=== PATIENT | male | born 1955 | race Asian ===

== ENCOUNTER 2016-11-26 01:06 | Emergency (ER) | payer MEDICAID, OTHER ==
[~2016-11-26] VITALS: Ht 170.2 cm; Wt 91.5 kg
[2016-11-26 01:11] VITALS: Ht 170.2 cm; Wt 91.5 kg
[2016-11-26] MEDS ORDERED: ONDANSETRON 4 MG INJ IV STA (01:17)
[2016-11-26] MEDS ORDERED: HYDROmorphONE 1 MG/ML SYG IV STA (01:17)
[2016-11-26 01:49] LABS: BASOPHILS % 0.2 % (0.0-2.0); EOSINOPHILS % 0.2 % (0.0-7.0); HEMATOCRIT 46.8 % (42.0-52.0); HEMOGLOBIN 15.9 g/dl (14.0-18.0); LYMPHOCYTES # 1.3 10^3/ul (0.8-2.9); LYMPHOCYTES % 13.7 % (15.0-51.0); MEAN CORPUSCULAR HGB CONC 34.1 g/dl (32.0-37.0); MEAN CORPUSCULAR VOLUME 94.1 fl (82.0-101.0); MEAN PLATELET VOLUME 8.2 fl (7.4-10.4); MONOCYTE # 0.5 10^3/ul (0.3-0.9); MONOCYTES % 4.8 % (0.0-11.0); NEUTROPHIL # 7.6 10^3/ul (1.6-7.5); NEUTROPHILS % 81.1 % (39.0-77.0); PLATELET COUNT 199 10^3/UL (140-440); RED BLOOD COUNT 4.98 10^6/ul (4.70-6.10); RED CELL DISTRIBUTION WIDTH 12.6 % (11.5-14.5); UNCORRECTED WBC 9.4 10^3/ul (4.8-10.8); WHITE BLOOD COUNT 9.4 10^3/ul (4.8-10.8)
[2016-11-26 01:51] LABS: CONDITION 1
[2016-11-26 02:00] LABS: POTASSIUM 4.3 mmol/L (3.5-5.1)
[2016-11-26 02:03] LABS: CALCIUM 9.5 mg/dl (8.4-10.2); CREATININE 0.97 mg/dl (0.61-1.24)
--- NOTE | 2016-11-26 02:03 | RADRPT ---
PROCEDURE: CT Abdomen and pelvis without contrast. CLINICAL INDICATION: Abdominal pain. TECHNIQUE: CT scan of the abdomen and pelvis was performed on the [employer] LightSpeed 6 4 slice VCT scanner. Contiguous axial images using 2.5 mm slice thickness were obtained from the lainey ng bases to the ischial tuberosities without intravenous contrast. Coronal and sagittal reformatted images were also obtained. Images were reviewed on the PACS workstation. Exam CTD/vol = 13.31 mGy. Total exam DLP = 814.15 mGy-cm. COMPARISON: None. FINDINGS: Evaluation of the lung bases demonstrates mild bibasilar atelectasis. Abdomen: The liver is normal in size. There is no focal mass or dilatation of the biliary tree. T he gallbladder is not distended. Multiple gallstones are identified. The spleen, pancreas and bilate ral adrenal glands are within normal limits. Bilateral kidneys are normal in size with small right renal cysts. There is a 1 mm calculus within the lower pole of the right kidney. There is no radio paque ureteral calculus identified. There is no hydronephrosis or hydroureter. There is no retrope ritoneal adenopathy. The abdominal aorta is of normal caliber with scattered atherosclerotic calcif ications. There is no abnormal bowel wall thickening or distension. There is no bowel obstruction or free air . A normal appendix is identified. There is no diverticulosis or diverticulitis. There is no asci abelardo. Pelvis: The bladder is unremarkable. The prostate and seminal vesicles are within normal limits. There is no significant pelvic adenopathy or free fluid. Evaluation of the osseous structures demonstrates no suspicious lytic or blastic lesion. IMPRESSION: No acute abnormality identified within the abdomen and pelvis. Cholelithiasis. Nonobstructing right renal calculus. Vascular calcifications reflective of atherosclerosis. Mild bibasilar atelectasis. .Angelo Shook MD, Date Time Electronically viewed and signed by .Angelo Shook MD, MD on 11/26/2016 02:03 .T/
[2016-11-26] MEDS ORDERED: hydrALAzine 20 MG INJ IV ONE ×2 (02:30→03:30)
[2016-11-26 02:37] LABS: ALBUMIN 4.6 g/dl (3.3-4.9)
[2016-11-26 02:39] LABS: BILIRUBIN,INDIRECT 0.5 mg/dl (0-1.1); BILIRUBIN,TOTAL 0.5 mg/dl (0.2-1.3); TOTAL PROTEIN 8.4 g/dl (6.1-8.1)
[2016-11-26] MEDS ORDERED: NICARDipine HCL 30 MG CAPSULE PO ONE (03:30)
[2016-11-26 03:58] LABS: ADD UMIC YES; URINE BILIRUBIN (Dip) NEGATIVE (NEGATIVE); URINE BLOOD (Dip) TRACE (NEGATIVE); URINE COLOR LT. YELLOW (YELLOW); URINE GLUCOSE (Dip) NEGATIVE (NEGATIVE); URINE KETONES (Dip) NEGATIVE (NEGATIVE); URINE LEUKOCYTE ESTERASE (Dip) NEGATIVE (NEGATIVE); URINE NITRITE (Dip) NEGATIVE (NEGATIVE); URINE TOTAL PROTEIN (Dip) 1+ (NEGATIVE); URINE UROBILINOGEN (Dip) 0.2 E.U./dL (0.1-1.0)
[2016-11-26] MEDS ORDERED: HYDR-902 PO (04:11)
[2016-11-26] MEDS ORDERED: AMLO-218 PO (04:11)
[2016-11-26] MEDS ORDERED: DICY20TA59 PO (04:11)
--- NOTE | 2016-11-26 04:15 | ERD ---
ER Documentation Chief Complaint Date/Time DATE: 11/26/16 TIME: 04:12 Chief Complaint RIGHT FLANK PAIN SINCE LAST NIGTH. HX OF KIDNEY STONE HPI This is a 61-year-old male with a history of renal stones complains of a sudden onset of right back and right upper quadrant pain 1 hour prior to arrival with nausea vomiting 1 is since resolved. No diarrhea no chest pain or shortness of breath no fever. The patient says he has kidney stones in the past and this feels somewhat different. No radiation of pain pain onset was severe currently as mild to moderate. Patient denies history of hypertension but has elevated blood pressure here ROS All systems reviewed and are negative except as per history of present illness. Medications Home Meds Active Scripts Hydrocodone/Acetaminophen ([place] 10-325 Tablet) 1 Each Tablet, 1 TAB PO Q6H Y for PAIN, #20 TAB Prov:LUIS ALBERTO MANDUJANOSTOLOS A. DO 11/26/16 Dicyclomine Hcl* (Bentyl*) 20 Mg Tablet, 20 MG PO QID, #30 TAB Prov:LUIS ALBERTO MANDUJANOSTJUDITHS A. DO 11/26/16 Amlodipine Besylate* (Norvasc*) 10 Mg Tablet, 10 MG PO DAILY, #30 TAB Prov:LELIOOSLUIS ALBERTOSTOLOS A. DO 11/26/16 Allergies Allergies: Coded Allergies: No Known Drug Allergies (Verified Allergy, Unknown, 11/26/16) PMhx/Soc History of Surgery: Yes (inguinal hernia repair) Hx Miscellaneous Medical Probl: Yes (kidney stones) Hx Alcohol Use: Yes (special occasions) Hx Substance Use: No Hx Tobacco Use: Yes (quit- now e-cigs) Smoking Status: Former smoker FmHx Family History: No coronary disease Physical Exam Vitals Vital Signs Date Time Temp Pulse Resp B/P Pulse Ox O2 Delivery O2 Flow Rate FiO2 11/26/16 03:22 68 17 206/111 100 Room Air 11/26/16 01:11 97.0 59 20 171/90 100 Physical Exam Const: Well-developed, well-nourished Head: Atraumatic, normocephalic Eyes: Normal Conjunctiva, PERRLA, EOMI, normal sclera, no nystagmus ENT: Normal External Ears, Nose and Mouth, moist mucus membranes. Neck: Full range of motion. No meningismus, no lymphadenopathy. Resp: Clear to auscultation bilaterally, no wheezing, rhonchi, rales Cardio: Regular rate and rhythm, no murmurs, S1 S2 present Abd: Soft, right upper quadrant pain mild tenderness, non distended. Normal bowel sounds, no guarding or rebound, no pulsitile abdominal masses or bruits Skin: No petechiae or rashes, no ecchymosis , no maculopapular rash Back: No midline or flank tenderness Ext: No cyanosis, or edema, FROM x 4, normal inspection, neurovascularly intact x 4 Neur: Awake and alert, STR 5/5 x 4, sensation intact x 4, no focal findings, cerebellum intact Psych: Normal Mood and Affect Result Diagram: 11/26/1612411/26/165 Results 24 hrs Laboratory Tests Test 11/26/16 01:25 Alanine Aminotransferase (ALT/SGPT) 36IU/L Albumin 4.6g/dl Alkaline Phosphatase 101IU/L Anion Gap 18 Aspartate Amino Transf (AST/SGOT) 27IU/L Basophils # 0.010^3/ul Basophils % 0.2% Blood Urea Nitrogen 14mg/dl Calcium Level 9.5mg/dl Carbon Dioxide Level 26mmol/L Chloride Level 103mmol/L Creatinine 0.97mg/dl Direct Bilirubin 0.00mg/dl Eosinophils # 0.010^3/ul Eosinophils % 0.2% Glucose Level 133mg/dl Hematocrit 46.8% Hemoglobin 15.9g/dl Indirect Bilirubin 0.5mg/dl Lymphocytes # 1.310^3/ul Lymphocytes % 13.7% Mean Corpuscular Hemoglobin 32.0pg Mean Corpuscular Hemoglobin Concent 34.1g/dl Mean Corpuscular Volume 94.1fl Mean Platelet Volume 8.2fl Monocytes # 0.510^3/ul Monocytes % 4.8% Neutrophils # 7.610^3/ul Neutrophils % 81.1% Nucleated Red Blood Cells # 0.010^3/ul Nucleated Red Blood Cells % 0.0/100WBC Platelet Count 63542^3/UL Potassium Level 4.3mmol/L Red Blood Count 4.9810^6/ul Red Cell Distribution Width 12.6% Sodium Level 143mmol/L Total Bilirubin 0.5mg/dl Total Protein 8.4g/dl White Blood Count 9.410^3/ul Current Medications Medications (Trade) Dose Ordered Sig/Rodney Route PRN Reason Start Time Stop Time Status Last Admin Dose Admin Hydromorphone HCl (Dilaudid) 1 mg ONCE STAT IV 11/26/16 01:17 11/26/16 01:19 DC 11/26/16 01:30 Ondansetron HCl (Zofran Inj) 4 mg ONCE STAT IV 11/26/16 01:17 11/26/16 01:19 DC 11/26/16 01:30 Hydralazine HCl (Apresoline) 10 mg ONCE ONCE IV 11/26/16 02:30 11/26/16 02:31 DC 11/26/16 02:13 Nicardipine HCl (Cardene) 30 mg ONCE ONCE PO 11/26/16 03:30 11/26/16 03:31 DC 11/26/16 04:05 Hydralazine HCl (Apresoline) 10 mg ONCE ONCE IV 11/26/16 03:30 11/26/16 03:31 DC 11/26/16 04:06 Procedures/MDM PROCEDURE: CT Abdomen and pelvis without contrast. CLINICAL INDICATION: Abdominal pain. TECHNIQUE: CT scan of the abdomen and pelvis was performed on the [employer] LightSpeed 64 slice VCT scanner. Contiguous axial images using 2.5 mm slice thickness were obtained from the lung bases to the ischial tuberosities without intravenous contrast. Coronal and sagittal reformatted images were also obtained. Images were reviewed on the PACS workstation. Exam CTD/vol = 13.31 mGy. Total exam DLP = 814.15 mGy-cm. COMPARISON: None. FINDINGS: Evaluation of the lung bases demonstrates mild bibasilar atelectasis. Abdomen: The liver is normal in size. There is no focal mass or dilatation of the biliary tree. The gallbladder is not distended. Multiple gallstones are identified. The spleen, pancreas and bilateral adrenal glands are within normal limits. Bilateral kidneys are normal in size with small right renal cysts. There is a 1 mm calculus within the lower pole of the right kidney. There is no radiopaque ureteral calculus identified. There is no hydronephrosis or hydroureter. There is no retroperitoneal adenopathy. The abdominal aorta is of normal caliber with scattered atherosclerotic calcifications. There is no abnormal bowel wall thickening or distension. There is no bowel obstruction or free air. A normal appendix is identified. There is no diverticulosis or diverticulitis. There is no ascites. Pelvis: The bladder is unremarkable. The prostate and seminal vesicles are within normal limits. There is no significant pelvic adenopathy or free fluid. Evaluation of the osseous structures demonstrates no suspicious lytic or blastic lesion. IMPRESSION: No acute abnormality identified within the abdomen and pelvis. Cholelithiasis. Nonobstructing right renal calculus. Vascular calcifications reflective of atherosclerosis. Mild bibasilar atelectasis. .Angelo Shook MD, MD Date Time Electronically viewed and signed by .Angelo Shook MD, MD on 11/26/2016 02:03 .T/ CC: CHENG MANDUJANO DO Patient received intravenous hydralazine and Cardene p.o. to lower his blood pressure. The patient's pain is due to gallstones. Does not have any elevated liver function tests her white blood count. We will discharge him with Norvasc and Francy in a follow-up with general surgery Departure Diagnosis: Primary Impression: Gallstones Additional Impression: Hypertension Hypertension type: essential hypertension Qualified Code: I10 - Essential hypertension Condition: Stable Patient Instructions: High Blood Pressure (Hypertension) Referrals: ISA REYES APOSTOLOS A. DO Nov 26, 2016 04:15
[2016-11-26 04:52] LABS: BACTERIA,URINE MODERATE; SQUAMOUS EPITHELIAL CELL,UR FEW; URINE RBCS 0-2 /HPF (0)
[2016-11-26 04:57] VITALS: BP 136/91; PULSE 76; RESP 17; TEMP 98.2
== END 2016-11-26 04:59 | disposition home or self-care (01) ==
LOC: E/R 01:06
DX: K80.20 Calculus of gallbladder without cholecystitis without obstruction (principal); I10 Essential (primary) hypertension; R11.2 Nausea with vomiting, unspecified; Z87.891 Personal history of nicotine dependence
CPT/HCPCS: 36415; 74176; 80048; 80076; 81001; 81003; 85025; 96374; 96375; 96376; J0360; J1170; J2405; Z7502; Z7610

== ENCOUNTER 2017-06-08 13:40 | Observation (INO) | payer OTHER ==
[~2017-06-08] VITALS: Ht 170.2 cm; Wt 85.7 kg
[2017-06-08] VITALS (17 sets, daily range): BP systolic 108–165; BP diastolic 67–100; PULSE 54–69; RESP 12–18; Ht 170.2 cm; Wt 85.7 kg
[~2017-06-08 13:40] MED LIST: AMLO-218 PO; CEFAZOLIN 1 GM INJ ONE; CEFAZOLIN 2 GM/50 ML (PMX) 50 ML IVPB ONE; DICY20TA59 PO; HYDR-902 PO; SOD CHLORIDE 0.9% 1,000 ML IV SCH
[2017-06-08] MEDS ORDERED: ASPI-664 PO (14:15)
[2017-06-08] MEDS ORDERED: AMLO5TAB4 PO (14:15)
[2017-06-08] MEDS ORDERED: ALBUTEROL 0.083% (NEB) 2.5 MG/3 ML AMP HHN ONE (15:00)
[2017-06-08] MEDS ORDERED: METOCLOPRAMIDE 10 MG INJ IV PRN (15:00)
[2017-06-08] MEDS ORDERED: HYDROmorphONE (0.2 MG/ML) 10ML SYG IV PRN (15:00)
[2017-06-08] MEDS ORDERED: CEFAZOLIN 2 GM/50 ML (PMX) 50 ML IVPB ONE (15:00)
[2017-06-08] MEDS ORDERED: FENTAnyl 50 MCG/ML VIAL IV PRN ×2 (15:00)
[2017-06-08] MEDS ORDERED: ONDANSETRON 4 MG INJ IV PRN (15:00)
[2017-06-08] MEDS ORDERED: SOD CHLORIDE 0.9% 1,000 ML IV SCH (15:00)
[2017-06-08] MEDS ORDERED: MEPERIDINE 25 MG INJ IV PRN (15:00)
[2017-06-08] MEDS ORDERED: DIPHENHYDRAMINE 50 MG INJ IV PRN (15:00)
[2017-06-08] MEDS ORDERED: BUPIVACAINE 0.25% (MPF) 30 ML INJ ONE (16:28)
[2017-06-08] MEDS ORDERED: FENTAnyl 50 MCG/ML VIAL ONE (16:52)
[2017-06-08] MEDS ORDERED: LABETALOL HCL 20MG INJ ONE (17:36)
[2017-06-08] MEDS ORDERED: LIDOCAINE 2% (SDV) 5 ML INJ ONE (17:46)
[2017-06-08] MEDS ORDERED: SUCCINYLCHOLINE CHLORIDE 100 MG/5 ML SYG IV ONE (17:46)
[2017-06-08] MEDS ORDERED: ROCURONIUM 50 MG INJ ONE (17:47)
[2017-06-08] MEDS ORDERED: PROPOFOL 20 ML ONE (17:47)
[2017-06-08] MEDS ORDERED: SUGAMMADEX SODIUM 200 MG/2 ML VIAL IV ONE (17:47)
--- NOTE | 2017-06-08 18:14 | OPR ---
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 laparoscopic cholecystectomy 2. 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 He requires surgical excision of his gallbladder and liver wedge biopsy. Risks alternatives benefits in personal discussed patient. Patient expressed understanding consents to the operation. Operative\Procedure Findings Intrahepatic gallbladder and liver discoloration Procedure Description Patient is taken to the OR and prepped and draped in usual sterile fashion surgical timeout was performed IV antibiotics are given. Infraumbilical incision is made transversely with a 15 blade. Dissection cautery was carried onto the fascia. Fascia is divided with curved Pedro scissors. 0 Vicryl U stitch was placed to the fascia. Balloon Reyes trocar was introduced. Pneumoperitoneum is established. Mid epigastric optical 12 mm trocar was placed under direct visualization. Right upper quadrant 5 mm optical trocar in the right upper flank 5 mm optical trocar was placed under direct visualization. Upon initial inspection the contracted gallbladder was completely intrahepatic with adhesions was seen. Dome down approach was elected with careful dissection. The cystic duct was identified and dissected out however the cystic duct was thickened. 2 fires of 35 mm echelon vascular stapler was used to divide the cystic duct. Additional clips were used to reinforce the staple line. There is good hemostasis. The cystic artery was addressed with 3 clips proximal 1 clip distal. The cystic artery was divided. Gallbladder was retrieved using an Endo Catch bag. Wedge liver biopsy was also performed with cautery scissor in segment 5. There is good hemostasis. Additional snow Surgicel was applied to the wide gallbladder bed. Ports removed under direct visualization. 0 Vicryl U stitch was tied down. Skin was closed with running 4-0 Monocryl. Dry dressings were applied. Elan RILEY Jun 08, 2017 18:14
[2017-06-08] MEDS ORDERED: HYDROCODONE/APAP (5/325) TAB PO ONE (18:30)
[2017-06-08] MEDS: HYDROmorphONE (0.2 MG/ML) 10ML SYG IV PRN ×4 (18:51→19:34)
[2017-06-08] MEDS ORDERED: ACETAMINOPHEN (10 MG/ML) IV SYG IV* PRN (20:00)
[2017-06-08] MEDS ORDERED: ACETAMINOPHEN 1000MG/100ML IV 100 ML IVPB PRN ×2 (20:30→21:00)
[2017-06-08] MEDS: morphine 2 MG INJ IV PRN (21:02)
[2017-06-09 00:30] VITALS: BP 114/72; PULSE 62; RESP 18
[2017-06-09] MEDS: morphine 2 MG INJ IV PRN (06:09)
[2017-06-09 07:00] VITALS: BP 171/102; RESP 18
[2017-06-09] MEDS: HYDROCODONE/APAP (5/325) TAB PO PRN ×3 (07:58→17:16)
[2017-06-09 08:38] VITALS: BP 151/82; PULSE 71; RESP 18
--- NOTE | 2017-06-09 11:56 | HP ---
Date/Time of Note Date/Time of Note DATE: 06/09/17 TIME: 11:46 Assessment/Plan VTE Prophylaxis VTE Prophylaxis Intervention: SCD's Lines/Catheters IV Catheter Type (from Nrs): Peripheral IV Assessment/Plan Assessment/Plan -Cholelithiasis - sp laparoscopic cholecystectomy - sp wedge liver biopsy -Per surgical recommendations -Incentive spirometer -N.p.o., on IV fluids -Pain control-Tylenol, [place], morphine -Monitor for signs and symptoms of infection -Status post liver biopsy -Per surgical recommendations SCDs for DVT prophylaxis Protonix for GI prophylaxis Further treatment plan depends on patient's clinical course. at the bedside plan of care discussed with HPI/ROS Admit Date/Time Admit Date/Time Jun 08, 2017 at 19:31 ROS Mr. 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 Dr. Durham is his surgeon, who recommended surgical excision of his gallbladder and liver wedge biopsy. Patient underwent laparoscopic cholecystectomy, liver biopsy on [address] Manzo. Patient complained of poor surgical pain. at the bedside all questions answered. During assessment patient is awake denies any chest pain, shortness of breath, fever, dizziness, palpitations, weak focal weakness or numbness, bilateral calves pain. Patient is admitted under Dr. Hamm on medical surgical floor. 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 Medical History: gallstones Social History Smoking Status: Current every day smoker Exam/Review of Systems Vital Signs Vitals Vital Signs Date Time Temp Pulse Resp B/P Pulse Ox O2 Delivery O2 Flow Rate FiO2 06/09/17 08:38 98.2 71 18 151/82 96 Nasal Cannula 2.0 06/08/17 19:06 28 Intake and Output 06/08/17 06/08/17 06/09/17 15:00 23:00 07:00 Intake Total 1100 ml 1000 ml Output Total 10 ml 950 ml Balance 1090 ml 50 ml Exam Constitutional: alert, oriented Respiratory: clear to auscultation, normal air movement Cardiovascular: nl pulses, regular rate and rhythm Gastrointestinal: other (Surgical dressing noted dressing dry and intact no erythema no edema no discharge noted-), soft Musculoskeletal: nl extremities to inspection Extremities: normal pulses Skin: other (Status post surgical abdominal) Medications Medications Current Medications Acetaminophen/ Hydrocodone Bitart ([place] (5/325)) 1 tab Q4H PRN PO PAIN Last administered on 06/09/17 07:58; Admin Dose 1 TAB; Start 06/08/17 at 20:00 Morphine Sulfate 2 mg 2 mg Q2H PRN IV PAIN Last administered on 06/09/17 06:09 ; Admin Dose 2 MG; Start 06/08/17 at 20:00 Acetaminophen (Ofirmev 1000mg/ 100ml Iv) 100 ml @ 400 mls/hr Q6H PRN IVPB PAIN Last administered on 06/08/17 22:03; Admin Dose 400 MLS/HR; Start at 21:00 KAYLA RESTREPO Jun 09, 2017 11:56
[2017-06-09] MEDS ORDERED: PANTOPRAZOLE 40 MG INJ IV ONE (12:00)
--- NOTE | 2017-06-09 12:01 | PN ---
Date/Time of Note Date/Time of Note DATE: 06/09/17 TIME: 12:00 Assessment/Plan VTE Prophylaxis VTE Prophylaxis Intervention: SCD's Lines/Catheters IV Catheter Type (from Nrsg): Peripheral IV Assessment/Plan Chief Complaint/Hosp Course s/p lap talisha Problems: Assessment/Plan doing well dc home and f/u in 2 weeks Subjective 24 Hr Interval Summary Free Text/Dictation doing well, ok to dc home Exam/Review of Systems Vital Signs Vitals Vital Signs Date Time Temp Pulse Resp B/P Pulse Ox O2 Delivery O2 Flow Rate FiO2 06/09/17 08:38 98.2 71 18 151/82 96 Nasal Cannula 2.0 06/08/17 19:06 28 Intake and Output 06/08/17 06/08/17 06/09/17 14:59 22:59 06:59 Intake Total 1100 ml 1000 ml Output Total 10 ml 950 ml Balance 1090 ml 50 ml Exam c/d/i Medications Medications Current Medications Acetaminophen/ Hydrocodone Bitart ([place] (5/325)) 1 tab Q4H PRN PO PAIN Last administered on 06/09/17 07:58; Admin Dose 1 TAB; Start 06/08/17 at 20:00 Morphine Sulfate 2 mg 2 mg Q2H PRN IV PAIN Last administered on 06/09/17 06:09 ; Admin Dose 2 MG; Start 06/08/17 at 20:00 Acetaminophen (Ofirmev 1000mg/ 100ml Iv) 100 ml @ 400 mls/hr Q6H PRN IVPB PAIN Last administered on 06/08/17 22:03; Admin Dose 400 MLS/HR; Start at 21:00 Pantoprazole (Protonix Iv) 40 mg ONCE ONCE IV ; Start 06/09/17 at 12:00; Stop 06/09/17 at 12:01 Pantoprazole (Protonix Iv) 40 mg DAILY@06 IV ; Start 06/10/17 at 06:00 Elan RILEY Jun 09, 2017 12:00
[2017-06-09] MEDS ORDERED: HYDR-3498 PO (16:52)
[2017-06-09] MEDS ORDERED: DOCU-144 PO (16:52)
--- NOTE | 2017-06-09 16:53 | DS ---
Date/Time of Note Date/Time of Note DATE: 06/09/17 TIME: 16:53 Discharge Summary Admission/Discharge Info Admit Date/Time Jun 08, 2017 at 19:31 Discharge Date/Time Patient Condition: Stable Hospital Course s/p lap talisha Home Meds Active Scripts Docusate Sodium* (Colace*) 100 Mg Capsule, 100 MG PO HE, #20 CAP Prov:KAYLA RESTREPO 06/09/17 Hydrocodone Bit-Acetaminophen (Hydrocodone Bit-APAP) 5-325MG Tablet, 1 TAB PO Q6H Y for PAIN, #10 TAB Prov:KAYLA RESTREPO 06/09/17 Reported Medications Aspirin (Low Dose Aspirin) 81 Mg Tablet.dr, 81 MG PO DAILY, #30 TAB 06/08/17 Amlodipine Besylate* (Norvasc*) 5 Mg Tablet, 5 MG PO DAILY, TAB 06/08/17 Discontinued Scripts Hydrocodone/Acetaminophen ([place] 10-325 Tablet) 1 Each Tablet, 1 TAB PO Q6H Y for PAIN, #20 TAB Prov:CHENG MANDUJANO DO 11/26/16 Dicyclomine Hcl* (Bentyl*) 20 Mg Tablet, 20 MG PO QID, #30 TAB Prov:CHENG MANDUJANO DO 11/26/16 Amlodipine Besylate* (Norvasc*) 10 Mg Tablet, 10 MG PO DAILY, #30 TAB Prov:CHENG MANDUJANO DO 11/26/16 Primary Care Provider Not On Staff Doctor KAYLA RESTREPO Jun 09, 2017 16:53
--- NOTE | 2017-06-09 16:55 | PDOCDIS ---
Discharge Instructions HOME CARE INSTRUCTIONS: Diet Instructions: ACTIVITY: Activity Restrictions: Slowly Increase Activity Rest between Activity Avoid heavy lifting Do not operate Machinery Do not operate Power Tool Avoid Heavy Housework Bathing Restrictions: Sponge Bath KAYLA RESTREPO Jun 09, 2017 16:54
[2017-06-10] MEDS ORDERED: PANTOPRAZOLE 40 MG INJ IV SCH (06:00)
[2017-06-10] MEDS ORDERED: AMLODIPINE 5 MG TAB PO SCH (09:00)
== END 2017-06-09 18:20 | disposition home or self-care (01) ==
LOC: SDS 13:40 → MS1 19:31 → SDS 21:32
PROVIDERS: ADMIT Surgery; ATTEND Surgery
DX: K80.10 Calculus of gallbladder with chronic cholecystitis without obstruction (principal); K76.0 Fatty (change of) liver, not elsewhere classified; F17.200 Nicotine dependence, unspecified, uncomplicated; Z79.82 Long term (current) use of aspirin; E66.9 Obesity, unspecified; Z68.29 Body mass index [BMI] 29.0-29.9, adult
CPT/HCPCS: 47100; 47562; 88304; 88307; 88313; 94664; C9113; J0131; J0690; J1170; J2175; J2270; J2405; J3010; J7999; Z7500; Z7512; Z7610; G0378